=== PATIENT | female | born 1985 | race Caucasian/White ===

== ENCOUNTER 2018-09-08 12:13 | Emergency (ER) | payer OTHER ==
[~2018-09-08] VITALS: Ht 175.3 cm; Wt 88.5 kg
[~2018-09-08 12:13] MED LIST: DICLOXACILLIN500 MG PO; IRON325 M1 PO; NORCO 5-325 TA1 EACH PO; ZANTAC150 MG PO
--- OUTSIDE RECORDS SUMMARY | 2018-09-08 12:16 | XMS ---
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 Cathryn has no Care Guidelines for this patient. Ruth VISIT COUNT (12 MO.) 1 [facility]oveva [place]ves [facility] T[facility] 2 NOTE: Visits indicate total known visits. ED/C VISIT TRACKING (12 MO.) 09/08/2018 12:14 [facility] [place] TYPE: Emergency COMPLAINT: - ABD SWELLING/R LEG SWELLING [facility]/30/2018 10:[facility] DIAGNOSES: - Poss Kidney Infection - Nausea - Elevated C-reactive protein (CRP) - Acute cystitis without hematuria - Tubulo-interstitial nephritis, not specified as acute or chronic - Acute appendicitis with perforation and localized peritonitis, without abscess - Other disorders of bilirubin metabolism - Back Pain - Fever (75 Years Old Or >) INPATIENT VISIT TRACKING (12 MO.) 08/30/2018 10:[facility] DIAGNOSES: - Anemia, unspecified - Acute pyelonephritis - Other disorders of bilirubin metabolism - Acute appendicitis with perforation and localized peritonitis, without abscess - Acute cystitis without hematuria - Fatty (change of) liver, not elsewhere classified - Hepatomegaly, not elsewhere classified - Tubulo-interstitial nephritis, not specified as acute or chronic - Abnormal coagulation profile - Thrombocytopenia, unspecified - Elevated C-reactive protein (CRP) [email or web address]
[2018-09-08] MEDS ORDERED: CIPRO500 MG PO (12:40)
[2018-09-08] MEDS ORDERED: NORCO 7.5-3251 EACH PO (12:40)
[2018-09-08] MEDS ORDERED: ZOLPIDEM TART12.5 MG PO (12:40)
[2018-09-09] MEDS ORDERED: LASIX20 MG PO (18:49)
== END 2018-09-08 15:50 | disposition home or self-care (01) ==
LOC: ED 12:13
DX: K91.89 Other postprocedural complications and disorders of digestive system (principal); E88.09 Other disorders of plasma-protein metabolism, not elsewhere classified; K21.9 Gastro-esophageal reflux disease without esophagitis; Z90.89 Acquired absence of other organs; Z91.012 Allergy to eggs; Z79.899 Other long term (current) drug therapy
CPT/HCPCS: 74177; 80053; 81001; 83690; 85025; 85610; 85730; 99284-25; Q9967

== ENCOUNTER 2018-09-09 18:17 | Emergency (ER) | payer OTHER ==
[~2018-09-09] VITALS: Ht 175.3 cm; Wt 88.5 kg
[~2018-09-09 18:17] MED LIST changes: +CIPRO500 MG PO; +NORCO 7.5-3251 EACH PO; +ZOLPIDEM TART12.5 MG PO
--- OUTSIDE RECORDS SUMMARY | 2018-09-09 18:20 | XMS ---
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 [facility] [address] TOTAL 3 NOTE: Visits indicate total known visits. ED/UCC VISIT TRACKING (12 MO.) 09/09/2018 18:18 [facility] [place] TYPE: Emergency COMPLAINT: - ABD INCISION DRAINAGE 09/08/2018 12:14 [facility] [place] TYPE: Emergency COMPLAINT: - ABD SWELLING/R LEG SWELLING 08/30/2018 10:16 [facility] [place] TYPE: Emergency DIAGNOSES: - Poss Kidney Infection - Nausea - Elevated C-reactive protein (CRP) - Acute cystitis without hematuria - Tubulo-interstitial nephritis, not specified as acute or chronic - Acute appendicitis with perforation and localized peritonitis, without abscess - Other disorders of bilirubin metabolism - Back Pain - Fever (75 Years Old Or >) INPATIENT VISIT TRACKING (12 MO.) [facility]2018 [facility] DIAGNOSES: - Anemia, [...] Thrombocytopenia, unspecified - Elevated C-reactive protein (CRP) [email or web address]
[2018-09-09] MEDS ORDERED: LASIX20 MG PO (18:49)
== END 2018-09-09 20:00 | disposition home or self-care (01) ==
LOC: ED 18:17
DX: L76.82 Other postprocedural complications of skin and subcutaneous tissue (principal); R60.0 Localized edema; K21.9 Gastro-esophageal reflux disease without esophagitis; Z91.012 Allergy to eggs; Z79.899 Other long term (current) drug therapy
CPT/HCPCS: 12001; 99283-25

== ENCOUNTER 2020-04-03 12:11 | Emergency (ER) | payer OTHER ==
[~2020-04-03] VITALS: Ht 175.3 cm; Wt 65.8 kg
[~2020-04-03 12:11] MED LIST changes: +LASIX20 MG PO
--- OUTSIDE RECORDS SUMMARY | 2020-04-03 12:16 | XMS ---
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 EMy VISIT COUNT (12 MO.) 1 SHANDRA [facility] TOTAL 1 NOTE: Visits indicate total known visits. ED/UCC VISIT TRACKING (12 MO.) 04/03/2020 12:12 [facility] [place] TYPE: Emergency COMPLAINT: - LATHARGIC INPATIENT VISIT TRACKING (12 MO.) No inpatient visits to display in this time frame [email or web address]
--- NOTE | 2020-04-04 16:30 | EKG ---
[facility] [address] [facility] [place], [place] [address] Signed Normal sinus rhythm Normal ECG No previous ECGs available Confirmed by YESENIA BATISTA DO ([id number]) on 04/04/2020 4:30:24 PM Electronically Signed By: YESENIA BATISTA DO 04/04/20 1630 PATIENT NAME: GENOVEVA BLAKELY Electrocardiogram DATE OF : 81 PHYSICIAN: YESENIA BATISTA DO REPORT #: [id number] REPORT IS CONFIDENTIAL AND NOT TO BE RELEASED WITHOUT AUTHORIZATION
== END 2020-04-03 15:45 | disposition home or self-care (01) ==
LOC: ED 12:11
DX: F10.129 Alcohol abuse with intoxication, unspecified (principal); R53.83 Other fatigue; Y90.7 Blood alcohol level of 200-239 mg/100 ml; K21.9 Gastro-esophageal reflux disease without esophagitis; Z91.012 Allergy to eggs; Z79.899 Other long term (current) drug therapy
CPT/HCPCS: 71045; 80053; 81001; 84484; 84703; 85025; 93005; 93010; 99285-25; G0480